=== PATIENT | female | born 1985 | race Caucasian/White ===

== ENCOUNTER 2016-05-20 20:48 | Emergency (ER) | payer BC ==
[2016-05-20] MEDS ORDERED: NORMAL SALINE 1,000 ML IV ONE (22:01)
[2016-05-20] MEDS ORDERED: ONDANSETRON HCL/PF 2 MG/ML VIAL IV ONE (22:01)
[2016-05-20] MEDS ORDERED: ONDANSETRON HCL/PF 2 MG/ML VIAL ONE (22:07)
--- NOTE | 2016-05-20 22:13 | ERNOTE ---
Abdominal HPI - General Chief Complaint: Abdominal Pain Time Seen by Provider: 05/20/16 22:00 Source: patient, family Exam Limitations: clinical condition - Immun/Allergies/Home Medications Immunizatons: IMMUNIZATION HX Immunizations Up to Date No: unsure History of Influenza Vaccine Yes Hx Pneumococcal Vaccination No Allergies/Adverse Reactions: Allergies penicillin G Allergy (Unknown, Verified 05/20/16 21:14) both parents allergic, unsure of her reaction or if she has one. cefaclor [From Ceclor] Allergy (Verified 05/20/16 21:14) Home Medications: HOME MEDICATIONS Acetaminophen [Tylenol] 650 mg PO Q6H PRN #0 tablet 09/23/14 [Last Taken Unknown ] Metoclopramide HCl [Reglan] 5 mg PO ACHS #10 tab 05/21/16 [Last Taken Unknown] Ondansetron HCl [Zofran] 1 - 2 tab PO Q8H PRN #10 tab 05/21/16 [Last Taken Unknown] - History of Present Illness Narrative: pt had onset of vomiting early this am, which started out with indigested food. since then she has continued to vomit and has been unable to hold down any fluids. vomit has turned to yellow liquid without any blood Timing: getting worse Quality: moderate Activities at Onset: sleep Review of Systems - Review of Systems Constitutional: Absent: recent illness Respiratory: Absent: shortness of breath Cardiology: Absent: chest pain Gastrointestinal/Abdominal: Present: See HPI. Absent: diarrhea Genitourinary: Absent: frequency, dysuria Musculoskeletal: Present: back pain - chronic off and on. Skin: Present: no symptoms reported Neurological: Present: no symptoms reported Endocrine: Present: no symptoms reported Hematologic/Lymphatic: Present: no symptoms reported Psych: Present: no symptoms reported - Patient's Past Medical History Patient History - Medical: Headache Patient History - Cardiac/Respiratory: No pertinent hx Patient History - Cancer: No Hx of Cancer Patient History - Surgical Procedures: Appendectomy, , T & A Patient History - Other: None LMP (Calendar): 04/30/16 - Family History Mother Family History - Medical: Diabetes Type 2 Insulin Dependent Family History - Cardiac/Respiratory: No pertinent hx Father Family History - Medical: No pertinent hx Family History - Cardiac/Respiratory: No pertinent hx - Social History Living Situations: home Psych History: No pertinent hx Alcohol Use: none Drug Use: none - Immunizations Immunizations Up to Date: No - unsure Hx Pneumococcal Vaccination: No History of Influenza Vaccine: Yes Physical Exam - Physical Exam General Appearance: Present: wd/wn, alert, mild distress Eye Exam: Normal inspection: bilateral Respiratory: Present: no respiratory distress, normal breath sounds, lungs clear Cardiovascular/Chest: Present: regular rate, rhythm, no murmur, normal peripheral pulses Gastrointestinal/Abdominal: Present: normal bowel sounds, tenderness - diffusly but more upper quads than lower Back Exam: Present: CVA tenderness (R), CVA tenderness (L). Absent: vertebral tenderness Extremity Exam: Present: normal inspection, normal range of motion, no edema Neurological Exam: Present: alert Skin Exam: Present: normal color, warm/dry ED Progress - Results and Orders Patient's Lab Results:: I have reviewed the patient's lab results. Results and Orders: Laboratory Tests 05/20/16 05/20/16 05/20/16 22:10 22:10 22:55 WBC 13.4 H Hgb 13.8 Hct 40.5 Plt Count 196 Sodium 140 Potassium 3.9 Chloride 103 Carbon Dioxide 21.6 L Anion Gap 19.3 H BUN 10 Creatinine 0.62 Est GFR (Non-Af Amer) 121 Random Glucose 123 H Calcium 9.9 Total Bilirubin 0.6 AST 16 ALT 17 L Alkaline Phosphatase 57 Total Protein 8.2 Albumin 4.7 Amylase 30 Lipase 64 L Urine Color Urine Appearance Urine pH Ur Specific [place] Urine Protein Urine Glucose (UA) Urine Ketones Urine Blood Urine Nitrate Urine Bilirubin Prot Sulfosalicylic Acd Urine Urobilinogen Ur Leukocyte Esterase Urine RBC Urine WBC Ur Epithelial Cells Urine Bacteria Coarse Granular Casts Urine Mucus Urine Culture Comments Urine HCG, Qual Negative Urine Opiates Screen Barbiturate Screen Ur Phencyclidine Scrn Urine Amphetamine U Benzodiazepines Scrn Urine Cocaine Screen Urine Marijuana (THC) 05/20/16 05/20/16 22:55 22:55 WBC Hgb Hct Plt Count Sodium Potassium Chloride Carbon Dioxide Anion Gap BUN Creatinine Est GFR (Non-Af Amer) Random Glucose Calcium Total Bilirubin AST ALT Alkaline Phosphatase Total Protein Albumin Amylase Lipase Urine Color Yellow Urine Appearance Clear Urine pH 6.5 Ur Specific [place] 1.025 Urine Protein 30 H Urine Glucose (UA) Negative Urine Ketones Large Urine Blood 50 H Urine Nitrate Negative Urine Bilirubin Negative Prot Sulfosalicylic Acd Negative Urine Urobilinogen Normal Ur Leukocyte Esterase Negative Urine RBC 10-25 H Urine WBC 0-5 Ur Epithelial Cells >25 H Urine Bacteria 2+ H Coarse Granular Casts Trace Urine Mucus Many - 3+ H Urine Culture Comments No culture indicated Urine HCG, Qual Urine Opiates Screen Negative Barbiturate Screen Negative Ur Phencyclidine Scrn Negative Urine Amphetamine Positive H U Benzodiazepines Scrn Negative Urine Cocaine Screen Negative Urine Marijuana (THC) Negative - Vital Signs Patient's Vital Signs:: I have reviewed the patient's vital signs. Vital Signs: Vital Signs 05/20/16 21:09 Temperature 37.3 C Pulse Rate 104 H Respiratory 26 H Rate Blood Pressure 129/81 O2 Sat by Pulse 100 Oximetry - X-Ray X-Ray #1 X-Ray: abdomen Interpretation: Interp. by me X-ray Comments: mild retained stool. no mass or obstruction - Progress/Reassessment Chief Complaint: Abdominal Pain Progress Note-Subjective: 05/21/16 02:10 Pt dry-heaving again. ordered benadryl 25mg and reglan 5 mg IV. 05/21/16 02:57 pt has not had dry-heaving since receiving above medication and wanting something to drink. will give sips of Gatoraid Departure - Departure Clinical Impression: Vomiting Qualifiers: Vomiting type: cyclical vomiting Vomiting Intractability: non-intractable Nausea presence: with nausea Qualified Code(s): G43.A0 - Cyclical vomiting, not intractable Disposition: Home Follow Up Needed Condition: Fair Instructions: Nausea, Adult, [id number] Additional Instructions: use the medications given over the next 24 hours or so. Stick with clear liquids for 24 hours then resume your diet slowly after that. Prescriptions: Metoclopramide HCl [Reglan] 5 mg PO ACHS #10 tab Ondansetron HCl [Zofran] 1 - 2 tab PO Q8H PRN #10 tab PRN Reason: Nausea
[2016-05-20 22:23] LABS: Hematocrit 40.5 % (37.0-47.0); Hemoglobin 13.8 gm/dL (12.5-16.0); Mean Cell Volume 87.9 fl (78-100); Mean Corpuscular Hemoglobin 29.9 pg (27-31); Mean Corpuscular Hgb Conc 34.1 g/dl (32-36); Mean Platelet Volume 11.3 fl (6.0-9.5); Neutrophil # 11.4 K/mm3 (1.3-6.0); Neutrophil % 85.4 % (42-75.0); Platelet Count 196 K/mm3 (150-450); Red Blood Count 4.61 M/mm3 (4.2-5.4); Red Cell Distribution Width 12.6 % (11.5-14.0); White Blood Count 13.4 K/mm3 (4.0-10.5)
[2016-05-20 22:37] LABS: Albumin * 4.7 gm/dl (3.4-5.0); Anion Gap 19.3 mmol/L (6.8-13.8); BUN/Creatinine Ratio 16.1 (9.0-21.6); Bilirubin, Total 0.6 mg/dL (0.0-1.1); Calcium * 9.9 mg/dL (7.9-10.9); Carbon Dioxide 21.6 mmol/L (24-32.6); Potassium 3.9 mmol/L (3.4-4.6); Total Protein 8.2 gm/dL (6.2-8.2)
[2016-05-20] MEDS ORDERED: PROMETHAZINE HCL 25 MG/ML AMPUL ONE (23:40)
[2016-05-20] MEDS ORDERED: PROMETHAZINE HCL 25 MG/ML AMPUL IM ONE (23:40)
[2016-05-20 23:56] LABS: Urine Appearance Clear; Urine Color Yellow
[2016-05-20 23:57] LABS: Urine Bilirubin Negative (NEGATIVE); Urine Blood 50 /ul (NEGATIVE); Urine Ketone Large mg/dL (NEGATIVE); Urine Nitrite Negative (NEGATIVE); Urine Protein 30 mg/dL (NEGATIVE); Urine Specific Gravity 1.025 SP.GR. (1.005-1.010); Urine Urobilinogen Normal (NORMAL); Urine WBC 0-5 /hpf (0-5); Urine pH 6.5 pH (5.0-7.0)
[2016-05-20 23:58] LABS: Urine Bacteria 2+; Urine Coarse Granular Cast TRACE /LPF; Urine Mucus Many - 3+
[2016-05-21 00:01] LABS: Cocaine Ur Negative (NEGATIVE); Urine Barbiturate Negative (NEGATIVE); Urine Benzodiazepines Negative (NEGATIVE); Urine Opiates Negative (NEGATIVE); Urine PCP Negative (NEGATIVE); Urine THC Negative (NEGATIVE)
[2016-05-21] MEDS ORDERED: diphenhydrAMINE HCL 50 MG/ML VIAL IV ONE (02:14)
[2016-05-21] MEDS ORDERED: METOCLOPRAMIDE HCL 5 MG/ML VIAL IV ONE (02:14)
[2016-05-21] MEDS ORDERED: METOCLOPRAMIDE HCL 5 MG/ML VIAL ONE (02:16)
[2016-05-21] MEDS ORDERED: diphenhydrAMINE HCL 50 MG/ML VIAL ONE (02:16)
[2016-05-21] MEDS ORDERED: METOCLOPRAMIDE HCL 10 MG TABLET PO ONE (03:27)
[2016-05-21] MEDS ORDERED: ONDANSETRON 4 MG TAB.RAPDIS PO ONE (03:28)
[2016-05-21] MEDS ORDERED: ONDANSETRON 4 MG TAB.RAPDIS ONE ×2 (03:37→03:44)
[2016-05-21] MEDS ORDERED: METOCLOPRAMIDE HCL 10 MG TABLET ONE ×2 (03:37→03:43)
[2016-05-21 03:59] VITALS: BP 118/72
== END 2016-05-21 03:56 | disposition home or self-care (01) ==
LOC: ER 20:48
DX: G43.A0 Cyclical vomiting, in migraine, not intractable (principal)

== ENCOUNTER 2016-05-22 10:43 | Observation (INO) | payer BC ==
[2016-05-22] MEDS ORDERED: NORMAL SALINE 1,000 ML IV ONE ×2 (12:20→14:52)
[2016-05-22] MEDS ORDERED: METOCLOPRAMIDE HCL 5 MG/ML VIAL IV ONE (12:20)
[2016-05-22] MEDS ORDERED: METOCLOPRAMIDE HCL 5 MG/ML VIAL ONE (12:23)
[2016-05-22 12:47] LABS: Hematocrit 43.3 % (37.0-47.0); Hemoglobin 14.7 gm/dL (12.5-16.0); Mean Cell Volume 87.8 fl (78-100); Mean Corpuscular Hemoglobin 29.8 pg (27-31); Mean Corpuscular Hgb Conc 33.9 g/dl (32-36); Mean Platelet Volume 11.4 fl (6.0-9.5); Neutrophil # 7.2 K/mm3 (1.3-6.0); Neutrophil % 76.7 % (42-75.0); Platelet Count 195 K/mm3 (150-450); Red Blood Count 4.93 M/mm3 (4.2-5.4); Red Cell Distribution Width 12.3 % (11.5-14.0); White Blood Count 9.4 K/mm3 (4.0-10.5)
--- NOTE | 2016-05-22 12:48 | ERNOTE ---
Medical Problem HPI - Narrative Date of Service: 05/22/16 - General Chief Complaint: Nausea/Vomiting Time Seen by Provider: 05/22/16 12:19 Source: patient, family, RN notes reviewed, old records Exam Limitations: no limitations - Immun/Allergies/Home Medications Immunizations: IMMUNIZATION HX Immunizations Up to Date No: unsure History of Influenza Vaccine Yes Hx Pneumococcal Vaccination No Allergies/Adverse Reactions: Allergies penicillin G Allergy (Unknown, Verified 05/22/16 11:10) both parents allergic, unsure of her reaction or if she has one. cefaclor [From Ceclor] Allergy (Verified 05/22/16 11:10) Home Medications: HOME MEDICATIONS Acetaminophen [Tylenol] 650 mg PO Q6H PRN #0 tablet 09/23/14 [Last Taken Unknown ] Metoclopramide HCl [Reglan] 5 mg PO ACHS #10 tab 05/21/16 [Last Taken Unknown] Ondansetron HCl [Zofran] 1 - 2 tab PO Q8H PRN #10 tab 05/21/16 [Last Taken Unknown] - History of Present History Narrative: 31 y/o female returns to the ED with her for nausea and vomiting that began 2 days ago. She was evaluated and treated for this here at that time. Her symptoms have not improved despite taking Reglan and Zofran at home. She reports also having small amounts of diarrhea. She denies any sick contacts. Date (Duration): 05/20/16 Review of Systems - Review of Systems Constitutional: Present: fatigue, malaise. Absent: fever, chills EYE: Present: no symptoms reported ENT: Absent: nose congestion, sore throat Respiratory: Absent: shortness of breath, cough Cardiology: Absent: chest pain, syncope Gastrointestinal/Abdominal: Present: nausea, vomiting, diarrhea, abdominal pain , eating less, drinking less. Absent: other - hematemesis, blood in stools Genitourinary: Absent: frequency, dysuria, hematuria Musculoskeletal: Absent: back pain, muscle pain Skin: Absent: rash, lesions Neurological: Present: dizziness/light-headedness. Absent: headache Endocrine: Present: no symptoms reported Hematologic/Lymphatic: Present: no symptoms reported Psych: Present: no symptoms reported - Patient's Past Medical History Patient History - Medical: Headache Patient History - Cardiac/Respiratory: No pertinent hx Patient History - Cancer: No Hx of Cancer Patient History - Surgical Procedures: Appendectomy, , T & A Patient History - Other: None LMP (Calendar): 04/30/16 - Family History Mother Family History - Medical: Diabetes Type 2 Insulin Dependent Family History - Cardiac/Respiratory: No pertinent hx Father Family History - Medical: No pertinent hx Family History - Cardiac/Respiratory: No pertinent hx - Social History Living Situations: spouse Psych History: No pertinent hx Smoking Status: Current every day smoker Cigarettes Packs Per Day: 0.3 Have you smoked in the past 12 months: Yes Alcohol Use: none Drug Use: none - Immunizations Immunizations Up to Date: No - unsure Hx Pneumococcal Vaccination: No History of Influenza Vaccine: Yes Physical Exam - Physical Exam General Appearance: Present: wd/wn, alert, other - appears uncomfortable Eye Exam: Normal inspection: bilateral, PERRL: bilateral Neck: Present: normal inspection, nontender, supple, full range of motion Respiratory: Present: no respiratory distress, normal breath sounds, no accessory muscle use, lungs clear Cardiovascular/Chest: Present: regular rate, rhythm, no murmur, normal peripheral pulses Gastrointestinal/Abdominal: Present: normal bowel sounds, nondistended, soft, tenderness - moderate, diffuse. Absent: rebound, mass Back Exam: Present: normal inspection, no CVA tenderness Extremity Exam: Present: normal inspection Neurological Exam: Present: alert, oriented, no motor/sensory deficits, other - dysphoric. Absent: normal mood/affect Skin Exam: Present: normal color, warm/dry ED Progress - Results and Orders Patient's Lab Results:: I have reviewed the patient's lab results. - Vital Signs Patient's Vital Signs:: I have reviewed the patient's vital signs. Vital Signs: Vital Signs 05/22/16 05/22/16 11:05 11:37 Temperature 36.6 C 37.5 C Pulse Rate 71 72 Respiratory 16 16 Rate Blood Pressure 110/65 120/82 O2 Sat by Pulse 99 98 Oximetry - X-Ray X-Ray #1 X-Ray: abdomen Interpretation: Reviewed by me X-ray Comments: TECHNIQUE: AP upright and supine views of the abdomen were obtained, total of 3 images. COMPARISONS: 05/20/2016, 09/20/2014. FINDINGS: Abdomen Flat W/ Upright *: No subdiaphragmatic free air. No abnormal dilation of large or small bowel. Small rounded calcifications of the pelvis most likely phleboliths. No definite signs of nephrolithiasis. Elongated appearance of the hepatic silhouette suggestive of hepatomegaly versus Kris's lobe of liver. Osseous structures are intact. IMPRESSION: 1. Nonobstructive bowel gas pattern. 2. Hepatomegaly versus Kris's lobe of liver. 3. Additional comments as above. Electronically signed by Krystian Rick M.D.. - Progress/Reassessment Chief Complaint: Nausea/Vomiting Progress:: Unchanged Progress Note-Subjective: 05/22/16 13:56 Reports no improvement in nausea with Reglan. Phenergan IM ordered. Reports that she is dry heaving but none witnessed. Discussed labwork. Mild improvement since 05/20 visit. WBC down from 13 to 9. 05/22/16 16:11 Nausea and dry heaving did not improve with Phenergan. Zofran also given without improvement. Some improvement in pain with Toradol. Hospitalist contacted for admit as nothing has been able to control her nausea/vomiting. UA with possible infection, but specimen is contaminated and patient has no urinary complaints. Will defer treatment pending culture results. Patient was admitted in 2014 with cyclic vomiting but has not been here for this since. UDS on 05/20/16 positive for amphetamines but not marijuana. Departure - Departure Clinical Impression: Intractable nausea and vomiting Qualifiers: Vomiting type: unspecified Qualified Code(s): R11.2 - Nausea with vomiting, unspecified Disposition: [facility] Condition: Stable
[2016-05-22 12:55] LABS: Albumin * 4.6 gm/dl (3.4-5.0); Anion Gap 17.8 mmol/L (6.8-13.8); BUN/Creatinine Ratio 16.1 (9.0-21.6); Bilirubin, Total 0.8 mg/dL (0.0-1.1); Ca. Corrected For Albumin 8.2 mg/dL (8.4-10.2); Carbon Dioxide 23.5 mmol/L (24-32.6); Potassium 3.3 mmol/L (3.4-4.6)
[2016-05-22 13:15] LABS: Urine Bilirubin 1 mg/dl (NEGATIVE); Urine Blood 25 /ul (NEGATIVE); Urine Ketone Large mg/dL (NEGATIVE); Urine Nitrite Negative (NEGATIVE); Urine Protein 30 mg/dL (NEGATIVE); Urine Specific Gravity 1.025 SP.GR. (1.005-1.010); Urine Urobilinogen Normal (NORMAL); Urine pH 6.5 pH (5.0-7.0)
[2016-05-22 13:33] LABS: Urine Amorphous Sediment Few - 1+ (NONE-FEW); Urine Appearance Slightly Cloudy; Urine Bacteria 3+; Urine Color Amber; Urine RBC 0-5 /hpf (0-5)
[2016-05-22] MEDS ORDERED: PROMETHAZINE HCL 50 MG/ML AMPUL IM ONE ×2 (13:56→14:02)
[2016-05-22] MEDS ORDERED: KETOROLAC TROMETHAMINE 30 MG/ML VIAL IV ONE (14:52)
[2016-05-22] MEDS ORDERED: ONDANSETRON HCL/PF 2 MG/ML VIAL IV ONE (14:53)
[2016-05-22] MEDS ORDERED: KETOROLAC TROMETHAMINE 30 MG/ML VIAL ONE (15:01)
[2016-05-22] MEDS ORDERED: ONDANSETRON HCL/PF 2 MG/ML VIAL ONE (15:01)
[2016-05-22 16:31] LABS: Amylase * 42 U/L (25-115); Lipase 85 U/L (73-393)
[2016-05-22 16:53] LABS: Cocaine Ur Negative (NEGATIVE); Urine Barbiturate Negative (NEGATIVE); Urine Benzodiazepines Negative (NEGATIVE); Urine Opiates Negative (NEGATIVE); Urine PCP Negative (NEGATIVE); Urine THC Negative (NEGATIVE)
[2016-05-22] MEDS ORDERED: diphenhydrAMINE HCL 50 MG/ML VIAL IV ONE (17:25)
[2016-05-22] MEDS ORDERED: KETOROLAC TROMETHAMINE 30 MG/ML VIAL IV PRN (17:32)
[2016-05-22] MEDS ORDERED: diphenhydrAMINE HCL 50 MG/ML VIAL IV PRN ×2 (17:32→17:34)
[2016-05-22] MEDS: CIPROFLOXACIN LACTATE/D5W 400 MG in Premix Bag 1 BAG IV SCH (18:20)
[2016-05-22] MEDS: CIPROFLOXACIN LACTATE IV SCH (18:46)
[2016-05-22] MEDS: D5W IV SCH (18:46)
[2016-05-22] MEDS: POTASSIUM CHLORIDE 20 MEQ in NORMAL SALINE 1,000 ML IV SCH (18:46)
--- NOTE | 2016-05-22 19:36 | HP ---
Addendum entered and electronically signed by Marisa Perez ARNP 06/04/16 12: 28: The following errors were made in this document: patient was placed on iv cipro , NOT iv rocephin. SG Original Note: Chief Complaint - Chief Complaint Date of Service: 05/22/16 Time of Service: 15:25 Chief Complaint: nausea and vomiting History of Present Illness: Lynn is a 31 year old female with a past hospital admission for possible cyclic vomiting syndrome in 09/2015 who presented to the emergency room 2 days ago with nausea and vomiting. She was given IV fluids and sent home with prescriptions for zofran and reglan. The patient returned to the ER today with c/o continued vomiting for the past 2 days and now with abdominal pain and "diarrhea", which she describes as soft stools 2-3 times a day. also c/o sore throat and states that her children at home have had strep throat recently. denies any cp or dyspnea. - Patient's Past Medical History Patient History - Medical: Headache Patient History - Cardiac/Respiratory: No pertinent hx Patient History - Cancer: No Hx of Cancer Patient History - Surgical Procedures: Appendectomy, , T & A Patient History - Other: None LMP (Calendar): 04/30/16 - Family History Mother Family History - Medical: Diabetes Type 2 Insulin Dependent Family History - Cardiac/Respiratory: No pertinent hx Father Family History - Medical: No pertinent hx Family History - Cardiac/Respiratory: No pertinent hx - Social History Living Situations: spouse Psych History: No pertinent hx Smoking Status: Current every day smoker Cigarettes Packs Per Day: 0.3 Have you smoked in the past 12 months: Yes Do you dip or chew tobacco: No Smoking Start Date: 05/21/02 Patient requests Smoking Cessation Consult: No Initiate information on Smoking Cessation: Yes Alcohol Use: none Drug Use: none - Immunizations Immunizations Up to Date: No - unsure Hx Pneumococcal Vaccination: No History of Influenza Vaccine: Yes Review Of Systems (GEN) - Review of Systems Generalized/Overall Review: Present: Weakness, Malaise EENTM: Present: No Symptoms Reported Respiratory: Present: No Symptoms Reported Cardiac: Present: No Symptoms Reported Abdominal: Present: Nausea, Vomiting, Abdominal Pain, Diarrhea. Absent: Hematemesis, Constipation, Melena, Bright blood from rectum Genitourinary: Present: No Symptoms Reported Musculoskeletal: Present: No Symptoms Reported Neurological: Present: No Symptoms Reported Skin: Present: No Symptoms Reported Endocrine: Present: No Symptoms Reported Misc: All systems neg except as marked Allergies/Adverse Reactions: Allergies Allergy/AdvReac Type Severity Reaction Status Date / Time penicillin G Allergy Unknown Verified 05/22/16 11:10 cefaclor [From Ceclor] Allergy Verified 05/22/16 11:10 Home Medications: HOME MEDICATIONS Acetaminophen [Tylenol] 650 mg PO Q6H PRN #0 tablet 09/23/14 [Last Taken Unknown ] Ciprofloxacin HCl 500 mg PO BID #10 tablet 05/24/16 [Last Taken Unknown] Ondansetron HCl [Zofran] 4 mg PO Q6H PRN #30 tablet 05/24/16 [Last Taken Unknown ] Prochlorperazine Maleate [Compazine] 10 mg PO QID PRN #30 tab 05/24/16 [Last Taken Unknown] Promethazine HCl [Phenergan (Promethazine)] 25 mg PO QID PRN #30 tab 05/24/16 [ Last Taken Unknown] Exam - Exam Vital Signs: Vital Signs - Last Taken Temp 37.2 C 05/22/16 16:40 Pulse 66 05/22/16 16:40 Resp 16 05/22/16 16:40 BP 115/63 05/22/16 16:40 Pulse Ox 100 05/22/16 16:40 Constitutional: Present: Alert, Oriented x3, Cooperative, Moderate distress ENT Exam: Present: hearing grossly normal Eye Exam: bilateral eye: normal inspection Neck: Present: full range of motion, supple Back Exam: Present: normal inspection, CVA tenderness (R), CVA tenderness (L) Breasts: Present: Exam deferred Respiratory: Present: lungs clear, normal breath sounds, no respiratory distress Cardiovascular/Chest: Present: normal peripheral pulses, regular rate, rhythm, no chest tenderness Peripheral Pulses: carotid (R): 2+, carotid (L): 2+, dorsalis-pedis (R): 2+, dorsalis-pedis (L): 2+, radial (R): 2+, radial (L): 2+ Abdomen: Present: Normal bowel sounds, soft, nondistended, tender - generalized abdominal tenderness to palpation /Rectal: Present: Exam deferred Extremity: Present: normal range of motion, non-tender, normal inspection, no pedal edema Skin Exam: Present: normal color, warm/dry, no cyanosis Neurologic: Present: alert, oriented x 3 Diagnostic Studies: Laboratory Results WBC 9.4 K/mm3 (4.0-10.5) D 05/22/16 12:35 RBC 4.93 M/mm3 (4.2-5.4) 05/22/16 12:35 Hgb 14.7 gm/dL (12.5-16.0) 05/22/16 12:35 Hct 43.3 % (37.0-47.0) 05/22/16 12:35 MCV 87.8 fl (78-100) 05/22/16 12:35 MCH 29.8 pg (27-31) 05/22/16 12:35 MCHC 33.9 g/dl (32-36) 05/22/16 12:35 RDW 12.3 % (11.5-14.0) 05/22/16 12:35 Plt Count 195 K/mm3 (150-450) 05/22/16 12:35 MPV 11.4 fl (6.0-9.5) H 05/22/16 12:35 Immature Gran % (Auto) 0.20 % (0.001-0.429) 05/22/16 12:35 Immature Gran # (Auto) 0.02 K/mm3 (0.000-0.0310) 05/22/16 12:35 Neutrophils % 76.7 % (42-75.0) H 05/22/16 12:35 Lymphocytes % 17.7 % (20-51) L 05/22/16 12:35 Monocytes % 4.9 % (0.0-9) 05/22/16 12:35 Eosinophils % 0.2 % (0.0-3.0) 05/22/16 12:35 Basophils % 0.3 % (0.0-1.0) 05/22/16 12:35 Nucleated RBC % 0.0 k/mm3 (0-1) 05/22/16 12:35 Neutrophils # 7.2 K/mm3 (1.3-6.0) H 05/22/16 12:35 Lymphocytes # 1.7 k/mm3 (1.5-3.5) 05/22/16 12:35 Monocytes # 0.5 k/mm3 (0.0-1.0) 05/22/16 12:35 Eosinophils # 0.0 k/mm3 (0.0-0.7) 05/22/16 12:35 Absolute Basophils 0.0 k/mm3 (0.0-0.1) 05/22/16 12:35 Sodium 141 mmol/L (132-142) 05/22/16 12:35 Plasma Sodium 141 mmol/L (130-142) 05/22/16 12:35 Potassium 3.3 mmol/L (3.4-4.6) L 05/22/16 12:35 Chloride 103 mmol/L (97-106) 05/22/16 12:35 Carbon Dioxide 23.5 mmol/L (24-32.6) L 05/22/16 12:35 Anion Gap 17.8 mmol/L (6.8-13.8) H 05/22/16 12:35 BUN 10 mg/dL (3-23) 05/22/16 12:35 Creatinine 0.62 mg/dL (0.4-1.4) 05/22/16 12:35 Est GFR (Non-Af Amer) 121 mL/min (60-130) 05/22/16 12:35 BUN/Creatinine Ratio 16.1 (9.0-21.6) 05/22/16 12:35 Random Glucose 102 mg/dL (70-110) 05/22/16 12:35 Calcium 9.0 mg/dL (7.9-10.9) 05/22/16 12:35 Calcium Adj for Albumin 8.2 mg/dL (8.4-10.2) L 05/22/16 12:35 Total Bilirubin 0.8 mg/dL (0.0-1.1) 05/22/16 12:35 AST 11 U/L (0-48) 05/22/16 12:35 ALT 17 U/L (19-67) L 05/22/16 12:35 Alkaline Phosphatase 53 U/L (50-170) 05/22/16 12:35 Total Protein 8.0 gm/dL (6.2-8.2) 05/22/16 12:35 Albumin 4.6 gm/dl (3.4-5.0) 05/22/16 12:35 Amylase 42 U/L (25-115) 05/22/16 12:35 Lipase 85 U/L (73-393) 05/22/16 12:35 Serum HCG, Qual Negative (NEGATIVE) 05/22/16 12:35 Urine Color [place] 05/22/16 12:30 Urine Appearance Slightly cloudy 05/22/16 12:30 Urine pH 6.5 pH (5.0-7.0) 05/22/16 12:30 Ur Specific [place] 1.025 SP.GR. (1.005-1.010) 05/22/16 12:30 Urine Protein 30 mg/dL (NEGATIVE) H 05/22/16 12:30 Urine Glucose (UA) Negative mg/dL (NEGATIVE) 05/22/16 12:30 Urine Ketones Large mg/dL (NEGATIVE) 05/22/16 12:30 Urine Blood 25 /ul (NEGATIVE) H 05/22/16 12:30 Urine Nitrate Negative (NEGATIVE) 05/22/16 12:30 Urine Bilirubin 1 mg/dl (NEGATIVE) H 05/22/16 12:30 Urine Ictotest Negative (NEGATIVE) 05/22/16 12:30 Prot Sulfosalicylic Acd Negative mg/dL (0) 05/22/16 12:30 Urine Urobilinogen Normal EU/dl (NORMAL) 05/22/16 12:30 Ur Leukocyte Esterase 75 /ul (NEGATIVE) H 05/22/16 12:30 Urine RBC 0-5 /hpf (0-5) 05/22/16 12:30 Urine WBC 5-10 /hpf (0-5) H 05/22/16 12:30 Ur Epithelial Cells 5-10 /hpf (0-5) H 05/22/16 12:30 Amorphous Sediment Few - 1+ (NONE-FEW) 05/22/16 12:30 Urine Bacteria 3+ (NONE) H 05/22/16 12:30 Urine Culture Comments Culture to follow 05/22/16 12:30 Urine Opiates Screen Negative (NEGATIVE) 05/22/16 12:30 Barbiturate Screen Negative (NEGATIVE) 05/22/16 12:30 Ur Phencyclidine Scrn Negative (NEGATIVE) 05/22/16 12:30 Urine Amphetamine Negative (NEGATIVE) 05/22/16 12:30 U Benzodiazepines Scrn Negative (NEGATIVE) 05/22/16 12:30 Urine Cocaine Screen Negative (NEGATIVE) 05/22/16 12:30 Urine Marijuana (THC) Negative (NEGATIVE) 05/22/16 12:30 Group A Strep Rapid Negative (NEGATIVE) 05/22/16 19:10 Assessment/Plan - Assessment/Plan (1) Hypokalemia Assessment: likely due to nausea and vomiting with mild diarrhea - will check labs in am. will resolve as illness resolves. replace as needed. Problem: Acute (2) UTI (urinary tract infection) Assessment: start on rocephin. patient appears ill. check labs in the am. has bilat CVA tenderness. await urine culture. Problem: Acute Qualifiers: Urinary tract infection type: acute cystitis Hematuria presence: with hematuria Qualified Code(s): N30.01 - Acute cystitis with hematuria (3) Abdominal pain Assessment: of unknown origin. ? from UTI/pylonephritis. ?other cause. will order ct of the abdomen to assess. Problem: Acute Qualifiers: Abdominal location: generalized Qualified Code(s): R10.84 - Generalized abdominal pain (4) Intractable nausea and vomiting Assessment: will order multiple medications for nausea, especially given her history of possible cyclic vomiting syndrome in the past. Problem: Acute Qualifiers: Vomiting type: unspecified Qualified Code(s): R11.2 - Nausea with vomiting , unspecified (5) Pyelonephritis Assessment: await urine culture. watch vital signs closely. check labs in the am. Problem: Suspected
[2016-05-23] MEDS: ONDANSETRON HCL/PF 2 MG/ML VIAL IV PRN ×5 (02:58→20:59)
[2016-05-23] MEDS: MAG HYDROX/ALUMINUM HYD/SIMETH 30 ML UDC PO PRN ×2 (02:58→13:07)
[2016-05-23] MEDS: POTASSIUM CHLORIDE 20 MEQ in NORMAL SALINE 1,000 ML IV SCH ×2 (04:38→14:27)
[2016-05-23] MEDS ORDERED: DIATRIZOATE MEGLU/DIATRIZO SOD 30 ML BTL PO ONE (05:14)
[2016-05-23 05:44] LABS: Hematocrit 36.6 % (37.0-47.0); Hemoglobin 12.3 gm/dL (12.5-16.0); Mean Cell Volume 88.6 fl (78-100); Mean Corpuscular Hemoglobin 29.8 pg (27-31); Mean Corpuscular Hgb Conc 33.6 g/dl (32-36); Mean Platelet Volume 11.6 fl (6.0-9.5); Neutrophil # 9.1 K/mm3 (1.3-6.0); Neutrophil % 76.1 % (42-75.0); Platelet Count 163 K/mm3 (150-450); Red Blood Count 4.13 M/mm3 (4.2-5.4)
[2016-05-23 06:22] LABS: Albumin * 3.2 gm/dl (3.4-5.0); BUN/Creatinine Ratio 22.7 (9.0-21.6); Bilirubin, Total 0.8 mg/dL (0.0-1.1); Ca. Corrected For Albumin 8.3 mg/dL (8.4-10.2); Carbon Dioxide 19.2 mmol/L (24-32.6); Potassium 4.2 mmol/L (3.4-4.6); Total Protein 6.4 gm/dL (6.2-8.2)
[2016-05-23] MEDS: CIPROFLOXACIN LACTATE/D5W 400 MG in Premix Bag 1 BAG IV SCH (06:34)
[2016-05-23] MEDS: D5W IV SCH ×2 (06:37→18:47)
[2016-05-23] MEDS: CIPROFLOXACIN LACTATE IV SCH ×2 (06:37→18:47)
[2016-05-23] MEDS: PROCHLORPERAZINE EDISYLATE 5 MG/ML VIAL IV PRN (13:02)
--- NOTE | 2016-05-23 13:23 | PN ---
Subjective - Date and Time Seen Date: 05/23/16 Time: 13:10 Subjective Narrative: Lynn is a 31 year old female admitted with intractable nausea and vomiting. on rocephin iv for UTI / pylonephritis. CT of abdomen / pelvis done this am showed: IMPRESSION: 1. Multiple gallstones and potential gallbladder sludge seen within the gallbladder lumen. 2. Equivocal bowel wall prominence of the transverse colon and the descending colon. Probably artifactual from nondistention of peristalsis but consider potential colitis. 3. Incidental note of increased lung markings, and bronchial wall prominence. Correlate clinically for pulmonary symptoms of pneumonitis, bronchitis, or edema. pt still c/o nausea and vomiting. steady use of multiple iv nausea medications overnight. Objective - Review of Systems Generalized/Overall Review: Reports: Weakness, Malaise, Fatigue EENTM: Reports: No Symptoms Reported Respiratory: Reports: No Symptoms Reported Cardiac: Reports: No Symptoms Reported Abdominal: Reports: Nausea, Vomiting, Abdominal Pain, Diarrhea. Denies: Hematemesis, Constipation, Melena, Bright blood from rectum Genitourinary Symptoms: Reports: No Symptoms Reported Musculoskeletal Complaints: Reports: No Symptoms Reported Neurological: Reports: No Symptoms Reported Skin: Reports: No Symptoms Reported Endocrine: Reports: No Symptoms Reported Misc: All systems neg except as marked - Vitals Vitals: Last Vital Signs Temp 36.8 C 05/23/16 10:00 Pulse 60 05/23/16 10:00 Resp 18 05/23/16 10:00 BP 126/79 05/23/16 10:00 Pulse Ox 98 05/23/16 10:00 - Abnormal Lab Findings Abnormal Lab Findings: Abnormal Lab Results 05/23/16 05/23/16 Range/Units 05:38 05:38 WBC 12.0 H D (4.0-10.5) K/mm3 RBC 4.13 L (4.2-5.4) M/mm3 Hgb 12.3 L (12.5-16.0) gm/dL Hct 36.6 L (37.0-47.0) % MPV 11.6 H (6.0-9.5) fl Immature Gran # (Auto) 0.05 H (0.000-0.0310) K/mm3 Neutrophils % 76.1 H (42-75.0) % Lymphocytes % 16.2 L (20-51) % Neutrophils # 9.1 H (1.3-6.0) K/mm3 Carbon Dioxide 19.2 L (24-32.6) mmol/L Anion Gap 17.0 H (6.8-13.8) mmol/L Est GFR (Non-Af Amer) 180 H D (60-130) mL/min BUN/Creatinine Ratio 22.7 H (9.0-21.6) Calcium Adj for Albumin 8.3 L (8.4-10.2) mg/dL ALT 14 L (19-67) U/L Alkaline Phosphatase 46 L (50-170) U/L Albumin 3.2 L (3.4-5.0) gm/dl - Exam Constitutional: Present: Alert, Oriented x3, Cooperative, Mild distress ENT Exam: Present: hearing grossly normal Neck: Present: full range of motion, supple Breasts: Present: Exam deferred Respiratory: Present: lungs clear, normal breath sounds, no respiratory distress Cardiovascular/Chest: Present: normal peripheral pulses, regular rate, rhythm, no chest tenderness Abdomen: Present: Normal bowel sounds, soft, nondistended /Rectal: Present: Exam deferred Extremity: Present: normal range of motion, non-tender, normal inspection Skin Exam: Present: normal color, warm/dry, no cyanosis Neurologic: Present: alert, oriented x 3 Assessment/Plan - Problems/Diagnosis (1) Abdominal pain Problem: Acute Qualifiers: Abdominal location: generalized Qualified Code(s): R10.84 - Generalized abdominal pain Narrative: consult general surgery for recommendations. obtain US of RUQ given CT results. (2) Hypokalemia Problem: Resolved (3) Intractable nausea and vomiting Problem: Acute Qualifiers: Vomiting type: unspecified Qualified Code(s): R11.2 - Nausea with vomiting , unspecified Narrative: IV medications for nausea as needed. continue IV fluids. start clear liquid diet. advance as tolerated. (4) UTI (urinary tract infection) Problem: Acute Qualifiers: Urinary tract infection type: acute cystitis Hematuria presence: with hematuria Qualified Code(s): N30.01 - Acute cystitis with hematuria Narrative: pt spiked fever overnight and wbc elevated. will add labs to rule out sepsis. continue iv rocephin. await final urine culture results. (5) Cholelithiasis Problem: Chronic Qualifiers: Cholelithiasis location: gallbladder Cholecystitis presence: without cholecystitis Biliary obstruction: without biliary obstruction Qualified Code(s): K80.20 - Calculus of gallbladder without cholecystitis without obstruction Narrative: consult general surgery for recommendations given pt's symptoms. (6) Chronic calculous cholecystitis Problem: Chronic (7) Umbilical hernia without obstruction and without gangrene Problem: Chronic Narrative: consults general surgery given pt's symptoms for recommendations. (8) Pyelonephritis Problem: Suspected
[2016-05-23] MEDS: NORMAL SALINE 1,000 ML IV PRN (16:49)
--- NOTE | 2016-05-23 18:57 | CONS ---
HPI - General Date of Service: 05/23/16 Narrative: Ask to see patient to rule out gallbladder as etiology of fever and increasing WBC. Pt presented and admitted through ER. Ongoing workup due to increasing WBC and fever have included a CT of the abdomen. This showed Multiple gallstones but no evidence of acute cholecystitis. A subsequent US of the gallbladder confirmed the stones and some sludge. There was thickening of the gallbladder wall to a small degree. There was no pericholecystic fluid and there was a negative sonographic clinton's. UA is leukocyte esterase positive. She has no current complaints of RUQ, Epigastric, or upper abdominal pain. Source: patient, family, RN/MD, old records - History of Present Illness Allergies/Adverse Reactions: Allergies penicillin G Allergy (Unknown, Verified 05/22/16 11:10) both parents allergic, unsure of her reaction or if she has one. cefaclor [From Ceclor] Allergy (Verified 05/22/16 11:10) - Patient's Past Medical History Patient History - Medical: Headache Patient History - Cardiac/Respiratory: No pertinent hx Patient History - Cancer: No Hx of Cancer Patient History - Surgical Procedures: Appendectomy, , T & A Patient History - Other: None LMP (Calendar): 04/30/16 - Family History Mother Family History - Medical: Diabetes Type 2 Insulin Dependent Family History - Cardiac/Respiratory: No pertinent hx Father Family History - Medical: No pertinent hx Family History - Cardiac/Respiratory: No pertinent hx - Social History Living Situations: spouse Psych History: No pertinent hx Smoking Status: Current every day smoker Cigarettes Packs Per Day: 0.3 Have you smoked in the past 12 months: Yes Do you dip or chew tobacco: No Smoking Start Date: 05/21/02 Patient requests Smoking Cessation Consult: No Initiate information on Smoking Cessation: No Alcohol Use: none Drug Use: none - Immunizations Immunizations Up to Date: No - unsure Hx Pneumococcal Vaccination: No History of Influenza Vaccine: Yes Procedures ARTERIAL BLD GAS MEASURE (06/28/04) ESOPHAGOGASTRODUODENOSCOPY [EGD] W/CLOSED BIOPSY (09/21/14) MONITORING NOS (05/05/11) LOW CERVICAL (05/05/11) OTH ARTHROTOMY-FOOT/TOE (07/18/08) OTHER APPENDECTOMY (03/29/03) Medications - Medications Current Medications: Current Medications Al Hydrox/Mg Hydrox/Simethicone (Maalox Plus Suspension) 30 ml PO Q6H PRN PRN Reason: Indigestion Stop: 06/21/16 23:26 Last Admin: 05/23/16 13:07 Dose: 30 ml Ciprofloxacin/Dextrose 400 mg/ (Premix Bag) 1 bag in 1 mls @ 200 mls/hr IV Q12H SHAMIKA PRN Reason: Protocol Stop: 06/21/16 19:01 Last Admin: 05/23/16 06:37 Dose: Not Given Sodium Chloride (Sodium Chloride 0.9%) 1,000 mls @ 125 mls/hr IV .Q8H PRN PRN Reason: HYDRATION Stop: 06/22/16 16:29 Last Admin: 05/23/16 16:49 Dose: 125 mls/hr Ondansetron HCl (Zofran) 8 mg IV Q4H PRN PRN Reason: Nausea And Vomiting Stop: 06/21/16 17:33 Last Admin: 05/23/16 16:52 Dose: 8 mg Prochlorperazine Edisylate (Compazine) 10 mg IV Q6H PRN PRN Reason: Nausea Stop: 06/21/16 17:33 Last Admin: 05/23/16 13:02 Dose: 10 mg Review of Systems - Review of Systems Generalized/Overall Review: Present: Fever EENTM: Present: No Symptoms Reported Respiratory: Present: No Symptoms Reported Cardiac: Present: No Symptoms Reported Abdominal: Present: Other - Pt's relays a family history of cholelithiasis. Musculoskeletal: Present: Back Pain Neurological: Present: No Symptoms Reported Skin: Present: No Symptoms Reported Endocrine: Present: No Symptoms Reported Physical Examination - Exam Vital Signs: Vital Signs - Last Taken Temp 37.6 C H 05/23/16 15:24 Pulse 67 05/23/16 15:24 Resp 16 05/23/16 15:24 BP 129/78 05/23/16 15:24 Pulse Ox 98 05/23/16 15:24 O2 Oxygen Delivery Method Room Air Constitutional: Present: Alert, Oriented x3, Cooperative, Other - Terminally shy and non-verbal. Her answered my questions. Eye Exam: bilateral eye: scleral icterus - Absent Neck: Present: normal inspection Respiratory: Present: no respiratory distress, no accessory muscle use Abdomen: Present: soft, nontender, nondistended, no hepatospenomegaly, no masses , CVA tenderness - bilaterally, negative Clinton sign Extremity: Present: normal inspection Skin Exam: Present: normal color, warm/dry Neurologic: Present: no motor/sensory deficits Eye contact: Present: avoids eye contact - Results and Findings: Lab/Microbiology results last 24 hrs: Abnormal/Pending Laboratory Last 24 HRS 05/23/16 05/23/16 05:38 05:38 WBC 12.0 H D RBC 4.13 L Hgb 12.3 L Hct 36.6 L MPV 11.6 H Immature Gran # (Auto) 0.05 H Neutrophils % 76.1 H Lymphocytes % 16.2 L Neutrophils # 9.1 H Carbon Dioxide 19.2 L Anion Gap 17.0 H Est GFR (Non-Af Amer) 180 H D BUN/Creatinine Ratio 22.7 H Calcium Adj for Albumin 8.3 L ALT 14 L Alkaline Phosphatase 46 L Albumin 3.2 L Culture 05/22/16 17:45 Blood Culture - Preliminary Blood NO GROWTH 24 HOURS 05/22/16 17:38 Blood Culture - Preliminary Blood NO GROWTH 24 HOURS - Assessments/Findings (1) Chronic calculous cholecystitis Diagnosis(s): Her current WBC and fever are likely urinary in origin. The gallbladder is currently relatively quiescent though there are subtle signs of chronic irritation of the gallbladder such as the mildly thickened wall associated with low-grade elevation of transaminases. She should consider having a lap marika once she has recovered from this episode and regains her strength. We can repair her umbilical hernia at that time as well. Problem: Acute (2) Umbilical hernia without obstruction and without gangrene Problem: Acute
[2016-05-24] MEDS: ONDANSETRON HCL/PF 2 MG/ML VIAL IV PRN ×4 (01:06→14:22)
[2016-05-24] MEDS: NORMAL SALINE 1,000 ML IV PRN ×2 (01:52→11:53)
[2016-05-24 05:39] LABS: Hematocrit 37.7 % (37.0-47.0); Hemoglobin 12.9 gm/dL (12.5-16.0); Mean Cell Volume 87.5 fl (78-100); Mean Corpuscular Hemoglobin 29.9 pg (27-31); Mean Corpuscular Hgb Conc 34.2 g/dl (32-36); Mean Platelet Volume 11.3 fl (6.0-9.5); Neutrophil # 6.9 K/mm3 (1.3-6.0); Neutrophil % 73.1 % (42-75.0); Platelet Count 157 K/mm3 (150-450); Red Blood Count 4.31 M/mm3 (4.2-5.4); Red Cell Distribution Width 11.9 % (11.5-14.0); White Blood Count 9.5 K/mm3 (4.0-10.5)
[2016-05-24 05:49] LABS: Anion Gap 13.3 mmol/L (6.8-13.8); BUN/Creatinine Ratio 6.8 (9.0-21.6); Calcium * 8.2 mg/dL (7.9-10.9); Carbon Dioxide 25.1 mmol/L (24-32.6); Estimated Creat Clear 101.1; Potassium 3.4 mmol/L (3.4-4.6)
[2016-05-24] MEDS: CIPROFLOXACIN LACTATE IV SCH (06:26)
[2016-05-24] MEDS: D5W IV SCH (06:26)
[2016-05-24] MEDS: ACETAMINOPHEN 325 MG TABLET PO PRN ×2 (08:27→14:26)
[2016-05-24 10:21] VITALS: BP 124/80
[2016-05-24] MEDS: PROCHLORPERAZINE EDISYLATE 5 MG/ML VIAL IV PRN (10:27)
[2016-05-24] MEDS ORDERED: METOCLOPRAMIDE HCL 5 MG/ML VIAL IV ONE (12:08)
[2016-05-24] MEDS ORDERED: PROMETHAZINE HCL 25 MG TABLET PO ONE (12:10)
--- NOTE | 2016-05-24 15:03 | DS ---
(1) Pyelonephritis Problem: Acute (2) Chronic calculous cholecystitis Problem: Chronic (3) Intractable nausea and vomiting Problem: Resolved Qualifiers: Vomiting type: unspecified Qualified Code(s): R11.2 - Nausea with vomiting , unspecified (4) Umbilical hernia without obstruction and without gangrene Problem: Chronic (5) Cholelithiasis Problem: Chronic Qualifiers: Cholelithiasis location: gallbladder Cholecystitis presence: without cholecystitis Biliary obstruction: without biliary obstruction Qualified Code(s): K80.20 - Calculus of gallbladder without cholecystitis without obstruction Description of Stay: Lynn is a 31 year old female with a past hospital admission for possible cyclic vomiting syndrome in 09/2015 who presented to the emergency room 2 days ago with nausea and vomiting. She was given IV fluids and sent home with prescriptions for zofran and reglan. The patient returned to the ER today with c/o continued vomiting for the past 2 days and now with abdominal pain and "diarrhea", which she describes as soft stools 2-3 times a day. also c/o sore throat and states that her children at home have had strep throat recently. denies any cp or dyspnea. patient was given multiple iv medications for nausea and continuous iv fluids. her diet was advanced from clear liquids to a regular diet by discharge. the ct of the abdomen/pelvis and US of the RUQ both showed gall bladder wall thickening, gall stones with sludge. general surgery was consulted who recommended that the gall bladder was not the cause of her acute symptoms but that her urinary tract was. Thus, patient was discharged oral antibiotics. on the day of discharge, patient was able to keep food down without vomiting and she was discharged in stable condition. Procedures Performed: none Discharge Disposition: Home self care Disposition: Home self-care Condition: Stable Discharge Activity: Activity as tolerated Discharge Diet: General/regular food, Resume usual diet Problem Oriented Discharge Instructions to Patient/Family: Pyelonephritis, Adult, [id number], Dehydration, Adult, [id number] Additional Patient Instructions (free text): push clear fluids. advance diet as tolerated. follow up with primary care physician in 1 week. One time follow up with Dr. Priest on 06-04-16 @ 3:00pm. follow up with dr. roberson in 3-4 weeks on 06-24-16 @ 9:15am. Prescriptions (Any new or edited meds): Ciprofloxacin HCl 500 mg PO BID #10 tablet Ondansetron HCl [Zofran] 4 mg PO Q6H PRN #30 tablet PRN Reason: Nausea Prochlorperazine Maleate [Compazine] 10 mg PO QID PRN #30 tab PRN Reason: Nausea Promethazine HCl [Phenergan (Promethazine)] 25 mg PO QID PRN #30 tab PRN Reason: nausea/vomiting Complete Home Medications List: Complete Home Medication List: Acetaminophen [Tylenol] 650 mg PO Q6H PRN #0 tablet 09/23/14 Ciprofloxacin HCl 500 mg PO BID #10 tablet 05/24/16 Ondansetron HCl [Zofran] 4 mg PO Q6H PRN #30 tablet 05/24/16 Prochlorperazine Maleate [Compazine] 10 mg PO QID PRN #30 tab 05/24/16 Promethazine HCl [Phenergan (Promethazine)] 25 mg PO QID PRN #30 tab 05/24/16
== END 2016-05-24 15:47 | disposition home or self-care (01) ==
LOC: ER 10:43 → MS 16:20
PROVIDERS: ADMIT Nurse Practitioner Critical Care Medicine; ATTEND Internal Medicine
DX: N10 Acute pyelonephritis (principal); R11.2 Nausea with vomiting, unspecified; K80.10 Calculus of gallbladder with chronic cholecystitis without obstruction; K42.9 Umbilical hernia without obstruction or gangrene; E87.6 Hypokalemia; F17.210 Nicotine dependence, cigarettes, uncomplicated
CPT/HCPCS: 36415; 74020; 74177; 76705; 80048; 80053; 80307; 81001; 82150; 83605; 83690; 84145; 84703; 85025; 87040; 87081; 87086; 87430; 96365; 96366; 96367; 96372; 96374; 96375; 96376; 99284; G0378

== ENCOUNTER 2016-07-09 06:51 | Day surgery (SDC) | payer BC ==
[~2016-07-09 06:51] MED LIST: RINGERS SOLUTION,LACTATED 1,000 ML IV PRN
[2016-07-09] MEDS ORDERED: BUPIVACAINE HCL/EPINEPHRINE 50 ML VIAL IJ ONE ×2 (08:20)
[2016-07-09] MEDS ORDERED: RINGERS SOLUTION,LACTATED 1,000 ML IV ONE (09:15)
--- NOTE | 2016-07-09 09:25 | OR ---
Operative Report - Dictated Report Narrative: Date: 07/09/2016 PREOP: symptomatic gallstones POSTOP: same Procedure: laparoscopic cholecystectomy Surgeon: Davy Hunter MD Anesth: GETA EBL: 20cc Drains: none Specimen: gallbladder Comps: none apparent Description: Pt placed in supine position and following GETA the abdomen was prepped and draped in a sterile fashion. All port sites anesthetized with marcaine prior to incision. 5mm infraumbilical incision. Abdomen entered under direct vision with a scope inside a 5mm blunt port. Abdomen insufflated to 15mmHg with carbon dioxide. Superior midline 12mm and two flank 5mm ports inserted under direct vision. Fundus grasped and elevated. Adhesions taken down blunt from undersurface of gallbladder. Infundibulum grasped for countertraction. Cystic duct and artery dissected for critical view of safety then doubly clipped and divided. Gallbladder dissected free of fossa with scissors and cautery and placed in endocatch. There was a very large stone and therefore the fascial opening was enlarged in the epigastrium. Gallbladder delivered. Inspection carried out. Hemostasis was adequate with no apparent bile leak. Remainder of marcaine squirted into peritoneal cavity. Fascia closed with josselyn-martha and heavy vicryl. Pneumoperitoneum evacuated. Incisions closed with subcuticular 4-0 vicryl and sealed with dermabond. Pt discharged from OR in stable condition without apparent complications.
[2016-07-09] MEDS ORDERED: ONDANSETRON HCL/PF 2 MG/ML VIAL IV PRN (10:12)
[2016-07-09] MEDS ORDERED: MORPHINE SULFATE 4 MG/ML SYRG IV PRN (10:12)
[2016-07-09] MEDS ORDERED: HYDROcodone/ACETAMINOPHEN 1 EACH TABLET PO PRN (10:12)
[2016-07-09 15:04] VITALS: BP 114/79
== END 2016-07-09 06:52 | disposition home or self-care (01) ==
LOC: AMB 06:51
PROVIDERS: ATTEND Specialist
PROC: 0FT44ZZ Resection of Gallbladder, Percutaneous Endoscopic Approach (ICD-10-PCS; principal; 2016-07-09 08:00)
DX: K80.12 Calculus of gallbladder with acute and chronic cholecystitis without obstruction (principal); F41.9 Anxiety disorder, unspecified; F17.200 Nicotine dependence, unspecified, uncomplicated; Z68.22 Body mass index [BMI] 22.0-22.9, adult